=== PATIENT | female | born 1975 | race African-American/Black ===

== ENCOUNTER 2016-04-04 00:38 | Emergency (ER) ==
[2016-04-04] MEDS ORDERED: DILAUDID IM ONE (01:07)
[2016-04-04] MEDS ORDERED: ZOFRAN IM ONE (01:07)
--- NOTE | 2016-04-04 01:13 | PROVIDER DOCUMENTATION ---
HPI-Musculoskeletal Pain/Inj - GENERAL Chief Complaint: Extremity Pain Stated Complaint: RT HIP/RT LEG PAIN Time Seen by Provider: 04/04/16 00:54 Source: patient - HX OF PRESENT ILLNESS-MUSKULOSKELTAL Nature of Presenting Problem: Pt is a 40 yof who presents to ER with CC of R hip pain. 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 Pt reports that she woke up this morning with pain in her R hip that does not radiate to anywhere. Pt denies any other symptoms. Quality of Pain: reports: aching, cramping Severity in ED: moderate Onset/Duration: this morning Timing: still present Modifying Factors: worse with: exercise, massage, movement, palpation, other ( movement/rotation) Any recent injury?: No Locality of Occurance: Work Similar Symptoms Previously?: No Recently seen or treated by another doctor?: No - HIP/PELVIS PAIN/INJURY Hip Pain Location: reports: hip (R) Pain Radiation: reports: no radiation Context / Method of Injury: reports: unknown Associated Symptoms: reports: other (R leg unable to bear weight) Review of Systems - Adult - REVIEW OF SYSTEMS - ADULT Constitutional: denies: chills, fever Eyes: reports: no symptoms reported Ears, Nose, Mouth & Throat: reports: no symptoms reported Cardiovascular: reports: no symptoms reported Respiratory: reports: no symptoms reported Gastrointestinal: reports: no symptoms reported Genitourinary: reports: no symptoms reported Musculoskeletal: reports: muscle aches (R hip), other (R hip pain). denies: frequent leg cramps, joint swelling, muscle weakness Integumentary: reports: no symptoms reported Neurological: reports: no symptoms reported Psychiatric: reports: no symptoms reported Endocrine: reports: no symptoms reported Hematologic/Lymphatic: reports: no symptoms reported Allergic/Immunologic: reports: no symptoms reported All Other Systems: Reviewed and Negative Past History - Adult - PAST MEDICAL HISTORY-ADULT Review of Records: reports: Nursing Assessment Review, Medications Reviewed - IMMUNIZATION STATUS Childhood Immunizations: See Nurse Assessment Flu Vaccine: See Nurse Assessment Physical Exam-Injury Related - Physical Exam-Injury Related Initial Vital Signs Reviewed: Yes General Appearance: appears well, alert, moderate distress Neck: non-tender, full range of motion, supple Respiratory: chest non-tender, lungs clear, normal breath sounds Cardiovascular: normal peripheral pulses, regular rate, rhythm Back Exam: no CVA tenderness, no vertebral tenderness Extremity: tenderness (Tender in lateral aspect of R thigh). negative: inflammation, pulse deficit, pedal edema, slow capillary refill, swelling Integumentary: normal color, warm/dry Neurologic: grossly normal, no motor/sensory deficits Psych/Mental Status: normal thought content, normal thought process, oriented x 3, anxious, tearful Progress - PLAN OF CARE/RESULTS Progress/Plan/Lab Results: Vital Signs - 24 hr 04/04/16 00:40 Temperature 97.9 F Pulse Rate 87 Respiratory 18 Rate Blood Pressure 145/101 O2 Sat by Pulse 100 Oximetry Orders Category Date Time Status FEMUR MIN 2 VIEWS RIGHT [RAD] Stat Exams 04/04/16 01:09 Taken XRAY PELVIS W/HIP 2-3VW RT [RAD] Stat Exams 04/04/16 01:08 Taken BMP [BASIC METABOLIC PANEL] [CHEM] Stat Lab 04/04/16 01:15 Completed CBC WITH ELECTRONIC DIFF [HEME] Stat Lab 04/04/16 01:15 Completed Hydromorphone [Dilaudid] Med 04/04/16 01:07 Discontinued 1 mg IM NOW ONE Ondansetron [Zofran] Med 04/04/16 01:07 Discontinued 4 mg IM NOW ONE Laboratory Tests 04/04/16 04/04/16 01:15 01:15 WBC 9.62 RBC 4.07 L Hgb 11.0 L Hct 33.7 L MCV 82.8 MCH 27.0 MCHC 32.6 L RDW Std Deviation 14.0 Plt Count 310 MPV 11.6 H Immature Gran % (Auto) 0.3 Neut % (Auto) 65.4 Lymph % (Auto) 23.8 [place] % (Auto) 7.6 Eos % (Auto) 2.5 Baso % (Auto) 0.4 Immature Gran # (Auto) 0.03 Neut # (Auto) 6.29 Lymph # (Auto) 2.29 [place] # (Auto) 0.73 H Eos # (Auto) 0.24 Baso # (Auto) 0.04 Sodium 137 Potassium 4.3 Chloride 100 Carbon Dioxide 24 L Anion Gap 13 BUN 17 Creatinine 0.7 Estimated GFR/1.73 m2 > 60 BUN/Creatinine Ratio 24 Glucose 109 H Calculated Osmolality 276 Calcium 9.0 Departure - Departure Time of Disposition Order: 02:10 DIAGNOSIS: Musculoskeletal pain of right lower extremity Disposition: HOME 01 Certified Medical Emergency: Emergent Condition: Stable Additional Instructions: ED Follow Up Instructions: You have been treated by a care provider in the Emergency Department. These instructions are being provided to you so you can have an understanding of how to care for yourself upon discharge. Upon discharge from the Emergency Department, you are responsible for making arrangements for follow-up care by a physician of your choice. Take all prescribed medications as directed. Return to the Emergency Department immediately for any new or worsening symptoms. You may call the Physician Referral phone number at [phone] to obtain a list of Physicians who are taking new patients. Attestation - Scribe Verification/Attestation Scribe:: Adelfo Garrison Acting as Scribe for:: Сергей Vasques Scribe documention review:: This chart was documented by a scribe and accurately reflects the service the provider performed and the decisions made by the provider.
[2016-04-04 01:26] LABS: MANUAL DIFF NEEDED? NO
[2016-04-04 01:27] LABS: BASO% 0.4 % (0.0-0.8); EOS# 0.24 X1000 (0.0-0.7); EOS% 2.5 % (0.0-10.0); HEMATOCRIT 33.7 % (37.0-47.0); IMM GRAN# 0.03 X1000 (0.0-0.04); IMM GRAN% 0.3 % (0.0-0.5); LYMPH# 2.29 X1000 (1.2-3.4); LYMPH% 23.8 % (20.5-51.1); MCHC 32.6 g/dL (33-37); MCV 82.8 FL (81-99); MONO# 0.73 X1000 (0.11-0.59); MONO% 7.6 % (1.7-9.3); MPV 11.6 FL (7.4-10.4); NEUT% 65.4 % (42.2-75.2); PLT 310 X1000 (130-400); RBC 4.07 XMIL (4.2-5.4)
[2016-04-04 01:48] LABS: AGAP 13; BUN 17 mg/dL (8-22); CHLORIDE 100 mmol/L (98-107); COSMO 276; POTASSIUM 4.3 mmol/L (3.5-5.1); SODIUM 137 mmol/L (136-145); TCO2 24 mmol/L (25-35)
[2016-04-04 02:25] VITALS: BP 135/71
--- NOTE | 2016-04-04 11:39 | Diag Imaging Result Document ---
PROCEDURE NAME: FEMUR MIN 2 VIEWS RIGHT - 04/04/2016 PLAIN RADIOGRAPH OF THE RIGHT FEMUR, 2 VIEWS: COMPARISON: Right knee radiograph dated 10/30/2014. FINDINGS: Note that the proximal femur is out of the field of view but is included on a plain radiograph of the pelvis and right hip performed at the same time. There is no discrete fracture, dislocation, or intrinsic osseous lesion appreciated. The visualized joint spaces are unremarkable. Surrounding soft tissues are grossly unremarkable. IMPRESSION: No evidence of acute osseous abnormality.
--- NOTE | 2016-04-04 11:42 | Diag Imaging Result Document ---
PROCEDURE NAME: XRAY PELVIS W/HIP 2-3VW RT - 04/04/2016 PLAIN RADIOGRAPHS OF THE PELVIS AND RIGHT HIP, 3 VIEWS: COMPARISON: None available. FINDINGS: There is no discrete fracture, dislocation, or intrinsic osseous lesion. The visualized joint spaces are essentially unremarkable. The surrounding soft tissues are grossly unremarkable. IMPRESSION: No evidence of acute osseous abnormality.
== END 2016-04-04 02:25 | disposition home or self-care (01) ==
LOC: ED 00:38
DX: M79.1 Myalgia (principal); M25.551 Pain in right hip
CPT/HCPCS: 36415; 80048; 85025; 96372; J1170; J2405